=== PATIENT | male | born 1940 | race Caucasian/White ===

== ENCOUNTER 2017-03-03 17:19 | Observation (INO) ==
[2017-03-03] MEDS ORDERED: ZOFRAN IV PRN (19:01)
[2017-03-03] MEDS ORDERED: TYLENOL PO PRN (19:01)
[2017-03-03] MEDS: MORPHINE IV PRN ×3 (19:10→23:10)
--- NOTE | 2017-03-03 19:39 | HISTORY AND PHYSICAL ---
CHIEF COMPLAINT: Catheter stopped up. HISTORY OF PRESENT ILLNESS: This 76-year-old white male has been seen and followed by Dr. Hammond for acute bacterial prostatitis and problems with Larry catheter. He presented with UTI and was treated with antibiotics but then was unable to urinate. He was found to have 1300 mL in his bladder and a Larry catheter was placed. On at least 2 other occasions he has had to come back to the ER because the catheter was stopped up and no longer draining. Replacement catheter resulted in discharge of somewhat grossly bloody urine and it was likely that clots were essentially leading to stoppage of flow. He states that today he started having problems with catheter flow and tried to flush the catheter per instructions but was unable to achieve any relief. He came to the ER again, we replaced the catheter with a large-bore 24-Kinyarwanda irrigation catheter and although grossly bloody material came out at a volume of 750 mL total we started him out irrigating with continuous wash and he still had pink-tinged urine. I called Dr. Hammond to see what the best course of action was and we decided to put the patient in house for continuous bladder irrigation and Dr. Hammond can consult in the morning. PAST MEDICAL HISTORY: 1. Prostate cancer. 2. Paroxysmal atrial fibrillation. 3. Hypertension. 4. 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 PRESENT MEDICATIONS: Metoprolol 50 mg p.o. at bedtime, temazepam 30 mg p.o. at bedtime, Xarelto (he stopped this on Sunday) 20 mg p.o. at bedtime, atorvastatin 10 mg p.o. at bedtime, triamterene/hydrochlorothiazide 37.5/25 p.o. daily, tramadol q.6 p.r.n., meloxicam 15 mg p.o. daily, finasteride 5 mg p.o. daily and Levaquin 500 mg p.o. daily. SOCIAL HISTORY: The patient is a and is planning to be remarried in approximately 3 weeks. He is a former smoker but no longer smokes. He does not use alcohol. ALLERGIES: No known drug allergies. REVIEW OF SYSTEMS: The patient denies any fever or chills. Over the past week he has only been having problems with urinary catheter stoppages and urinary retention as a result of the clotting. As stated earlier he stopped his Xarelto on Sunday and continues to have grossly bloody urine output at times. He denies any cough, wheezing, shortness of breath, chest pain, palpitations, other abdominal pain and his bowels seem to be working normally. PHYSICAL EXAMINATION: GENERAL: He is a well-developed white male, no acute distress. HEENT EXAM: Unremarkable. LUNGS: Clear. CARDIOVASCULAR: Regular. ABDOMEN: Shows bowel sounds are present. He is slightly tender in the suprapubic area. EXTREMITIES: Show trace edema in the lower extremities. ASSESSMENT AND PLAN: 1. The patient be admitted to [address] [place] [address]. We will provide pain control measures and continuous bladder irrigation. We will keep the patient's home medications as they were previously. I will plan to put n.p.o. after midnight in case Dr. Hammond wants to perform cystoscopy in the morning. 2. Will have medications for pain control, nausea and other p.r.n.s. cc: Bhargav Morales MD
[2017-03-03 19:44] LABS: MANUAL DIFF NEEDED? NO
[2017-03-03 20:23] LABS: CALCIUM 9.3 mg/dL (8.8-10.2); POTASSIUM 4.7 mmol/L (3.5-5.1)
[2017-03-03 20:50] LABS: BASO% 0.3 % (0.0-0.8); EOS# 0.04 X1000 (0.0-0.7); EOS% 1.2 % (0.0-10.0); HEMATOCRIT 26.8 % (42.0-52.0); LYMPH# 0.97 X1000 (1.2-3.4); MCH 32.5 PG (27-31); MCHC 33.6 g/dL (33-37); MCV 96.8 FL (81-99); MONO# 0.53 X1000 (0.11-0.59); MONO% 15.3 % (1.7-9.3); MPV 9.9 FL (7.4-10.4); NEUT% 55.2 % (42.2-75.2); PLT 133 X1000 (130-400); RBC 2.77 XMIL (4.7-6.1)
[2017-03-04] MEDS: MORPHINE IV PRN ×5 (00:55→20:20)
[2017-03-04] MEDS ORDERED: ALLEGRA PO PRN (07:52)
[2017-03-04] MEDS ORDERED: TYLENOL ARTHRITIS PO PRN (07:52)
--- NOTE | 2017-03-04 09:22 | PROGRESS NOTE ---
DATE: 03/04/2017 SUBJECTIVE: The patient states that his pain is reasonably well controlled. Despite being on the continuous bladder washing overnight, he continues to have gross hematuria. We discussed his lab results. OBJECTIVE: Vital Signs: 98.3, 85, 20, 130/61. Physical Examination: General: He is a well-developed, thin, white male in no acute distress. He is alert, oriented, conversive, and appropriate. Lungs: Clear. Cardiovascular: Regular. Genitourinary: His urine Larry drainage bag is full of bright red urine. Laboratories: From yesterday, it was noted that the patient's hemoglobin was 9, hematocrit was 26.8. His BUN was 32 and creatinine 1.4. I do not have baseline readings for this but it would appear that he is moderately anemic compared to baseline and his creatinine is up as a result of the multiple obstructions. ASSESSMENT AND PLAN: 1. The hemorrhagic cystitis that the patient is suffering from is likely partial to a combination of infection and radiation affects from his previous treatments. He continues to have difficulty with the catheter stopping up. Overnight, it was a stopped up twice and had to be flushed despite the large-bore that we put in yesterday. I think we are going to be obliged to perform cystoscopy and evacuation of any clot as well as cautery of any open lesions. He has been off of his Xarelto for several days and given the half-life of the Xarelto, I do not think is affecting his bleeding that much, if at all anymore. 2. The patient was held nothing per oral in expectation of a potential cystoscopy. I will let Dr. Hammond make the final decision on that. He has been consulted for this morning. cc: Bhargav Morales MD
[2017-03-04] MEDS: LEVAQUIN PO SCH (10:06)
[2017-03-04] MEDS: CASODEX PO SCH (10:07)
[2017-03-04] MEDS ORDERED: DIPRIVAN 1% ONE (12:48)
[2017-03-04] MEDS ORDERED: DILAUDID ONE ×2 (12:49→13:24)
[2017-03-04] MEDS: DILAUDID ONE ×2 (13:05→13:09)
[2017-03-04] MEDS ORDERED: MORPHINE ONE (13:15)
[2017-03-04] MEDS: ELMIRON PO SCH ×2 (14:21→16:30)
[2017-03-04] MEDS ORDERED: DULCOLAX PO ONE (15:22)
[2017-03-04] MEDS ORDERED: RELISTOR SUBQ ONE (15:22)
--- NOTE | 2017-03-04 17:21 | CONSULTATION ---
DATE OF CONSULTATION: 03/04/2017 HISTORY OF PRESENT ILLNESS: This 76-year-old male has a history of prostate cancer. He is status post radical retropubic prostatectomy. His PSA increased and he underwent radiation therapy. His latest PSA was nondetectable. The patient has had intermittent gross hematuria since the radiation. He states it usually clears after a day or so. He also has a history of a urethral stricture but states that when he does void his stream is normal. He recently developed increased frequency and urgency. His urine culture grew E. coli that was essentially pansensitive. He has been on Levaquin. The patient states his irritative symptoms have resolved. He states he started passing clots and developed retention, has been to the emergency room 3 times over the last week for catheter irrigation. He was admitted last evening for continuous bladder irrigation. He states he had to be irrigated twice over the night because of clots. He has a history of coronary artery disease and has a history of atrial fibrillation and is on Xarelto. He stopped the Xarelto 5 days ago. He also uses meloxicam as needed for arthritis pain. PAST MEDICAL HISTORY: Prostate cancer, coronary artery disease, history of atrial fibrillation, hypertension, elevated cholesterol, gastroesophageal reflux disease. CURRENT MEDICATIONS: Documented on the chart. PAST SURGICAL HISTORY: Radical prostatectomy, subsequent radiation therapy, inflatable penile implant placed, shoulder surgery, anal fissure surgery. SOCIAL HISTORY: No current tobacco or alcohol use. ALLERGIES: No known drug allergies. REVIEW OF SYSTEMS: He states usually he is in he is in good health. He denies any problems with diabetes, strokes, seizures, pulmonary, or bowel problems. He states he does have thyroid problems. PHYSICAL EXAMINATION: General: A normally developed, well-nourished, age apparent, white male, oriented in all ways and cooperative. HEENT: Normal for age. Lungs: Clear. Cardiovascular: Regular rate and rhythm. Abdomen: Mildly protuberant, soft, nontender. No hepatosplenomegaly or masses. Normal bowel sounds. : Uncircumcised male. Larry catheter in place. Penile implant in place. Both testes down. Penile implant pump control in place in the scrotum. Rectal: Deferred until surgery. Extremities: No C, C or E. Neuro: No focal deficits. LABORATORY EVALUATION: He has a white count of 3.47, hemoglobin 9, hematocrit 26.8, platelets are 133,000. Serum electrolytes have a sodium of 135, potassium 4.7, chloride 97, bicarb 22, BUN 32, creatinine 1.4. IMPRESSION: 1. History of prostate cancer status post radical surgery and subsequent radiation therapy. 2. Recent urinary tract infection. 3. History of intermittent gross hematuria currently with several episodes of clot retention. RECOMMEND: Cystoscopic exam. Clot irrigation. Fulguration of any bleeding areas. Replace the Larry catheter. The planned procedure, benefits versus risks, possible complications, including but not limited to, bleeding, infection, not finding bleeding areas, need for further surgery or treatment of hemorrhagic cystitis secondary to radiation was discussed. He seems to understand and desires to proceed. cc: MD Bhargav Trevino MD
--- NOTE | 2017-03-04 19:26 | OPERATIVE NOTE ---
PROCEDURE DATE: 03/04/2017 SURGEON: Alexi Hammond MD PREOPERATIVE DIAGNOSIS: Clot retention. POSTOPERATIVE DIAGNOSIS: Clot retention. PROCEDURE PERFORMED: 1. Cystoscopic exam. 2. Clot irrigation. 3. Fulguration of bleeding areas. FINDINGS: Cystoscopic exam: Urethra-greater than 21-Lithuanian without stricture. Prostate- surgically absent. Some bleeding areas in the membranous urethra and bladder neck area. Bladder after clots removed normal ureteral orifices bilaterally. Some neovascularity consistent with previous radiation therapy. Several areas were oozing. No papillary lesions. No trabeculations. Rectal exam reveals a surgically absent prostate with the fossa very firm consistent with previous radical surgery and radiation therapy. DESCRIPTION OF PROCEDURE: After informed consent was obtained from the patient and him receiving his scheduled IV antibiotics, he was taken the main OR cystoscopy room, placed in the supine position. General anesthesia via laryngeal mask was achieved. He was then placed in the low lithotomy position and prepped and draped in the usual sterile fashion for cystoscopic exam. A 21- Lithuanian sheath cystoscope was passed through the patient's urethra and into the bladder. A large amount of clots was removed from the bladder. There were no arterial bleeding areas seen, just an oozing from several places in the membranous urethra and along the trigone and lower bladder churchill. The Bugbee electrode was placed and these areas were cauterized. At completion, both ureteral orifices were intact, effluxing clear urine. There were no bleeding areas seen. The bladder was left distended. The cystoscope was removed. A 22-Lithuanian Coude silicone Larry catheter was passed through the patient's urethra and into the bladder without difficulty. 20 mL of sterile water were placed in Larry's balloon. The efflux was clear. Continuous bladder irrigation was started for reassurance. A rectal exam was performed. He tolerated the procedure well. ESTIMATED BLOOD LOSS: Was about 3 mL. DISPOSITION: He was taken to recovery room in good condition. cc: MD Bhargav Trevino MD
[2017-03-04] MEDS: PERIDEX MT SCH (20:19)
[2017-03-04] MEDS: RESTORIL PO SCH ×2 (20:20→21:48)
[2017-03-04] MEDS ORDERED: LIPITOR PO SCH (21:00)
[2017-03-04] MEDS ORDERED: LOPRESSOR PO SCH (21:00)
--- NOTE | 2017-03-05 05:28 | EKG Report ---
Test Performed on : 03/04/2017 11:17:26 AM Test Reason : Surgery Blood Pressure : / mmHG Vent. Rate : 092 BPM Atrial Rate : 091 BPM P-R Int : 000 ms QRS Dur : 080 ms QT Int : 352 ms P-R-T Axes : 000 045 048 degrees QTc Int : 435 ms Atrial fibrillation. Nonspecific ST abnormality Abnormal ECG When compared with ECG of 18-AUG-2008 15:37, Atrial fibrillation. has replaced Sinus rhythm. Vent. rate has increased BY 30 BPM T wave amplitude has decreased in Inferior leads Confirmed by Ruth SEALS, Dwayne Hastings ([id number]) on 03/05/2017 6:46:26 PM
[2017-03-05] MEDS: MORPHINE IV PRN (06:30)
[2017-03-05] MEDS ORDERED: RELISTOR SUBQ ONE (08:26)
[2017-03-05 08:37] VITALS: BP 107/77
[2017-03-05] MEDS: PERIDEX MT SCH (09:15)
[2017-03-05] MEDS: LEVAQUIN PO SCH (09:15)
[2017-03-05] MEDS: ELMIRON PO SCH ×2 (09:17→12:51)
[2017-03-05] MEDS: CASODEX PO SCH (09:17)
[2017-03-05] MEDS ORDERED: ZOFRAN ONE (09:29)
[2017-03-05] MEDS ORDERED: DECADRON ONE (09:29)
[2017-03-05] MEDS ORDERED: XYLOCAINE-MPF 2% ONE (09:29)
[2017-03-05] MEDS ORDERED: ANESTHESIA PB SET 88 IN 5742 ONE (09:29)
[2017-03-05] MEDS ORDERED: EXTENSION SET 32 IN 4522 ONE (09:29)
[2017-03-05] MEDS ORDERED: NS 1,000 ML ONE (09:29)
--- NOTE | 2017-03-06 11:23 | DISCHARGE SUMMARY ---
ADMISSION DATE: 03/03/2017 DISCHARGE DATE: 03/05/2017 DISCHARGE DIAGNOSES: 1. Severe hematuria. 2. Catheter-related problems. 3. Bacterial prostatitis. 4. Urethral and bladder neck hemorrhage. 5. Hypertension. 6. 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 HOSPITAL COURSE: Mr. Rico was seen for the 4th time in the emergency room with a catheter stoppage as a result of blood clot formation. The patient was admitted for observation. We put him on overnight continuous bladder wash but he continued to have bright red hematuria. We checked his hemoglobin which was 9 and hematocrit was around 27. We consulted Dr. Hammond who performed cystoscopy on Sunday the . He replaced the 24-Tajik irrigation catheter with a 21- gauge catheter. The patient was allowed to recover overnight. The following day, he complained of not being able to have a bowel movement since . He was given some Relistor and a soapsuds enema with a large bowel movement and felt much relief. He is discharged home on his usual home medications. He has follow up with Dr. Hammond scheduled for Sunday. He is aware that he can call if there is any recurrence of the hematuria or any catheter stoppage. cc: Bhargav Morales MD
== END 2017-03-05 14:21 | disposition home or self-care (01) ==
LOC: ED 17:19 → 4N 19:12 → INTOOBSV 19:12
PROVIDERS: ADMIT Internal Medicine; ATTEND Internal Medicine